=== PATIENT | female | born 1970 | race Caucasian/White ===

== ENCOUNTER 2023-03-03 12:31 | Emergency (ER) | payer OTHER, SELFPAY ==
--- NOTE | ~2023-03-03 | XR_ITS ---
EXAMINATION: XR ankle LT min 3V DATE: 03/03/2023 13:07 INDICATION: Left ankle injury and swelling. TECHNIQUE: 4 views of left ankle were obtained. COMPARISON: None. FINDINGS: Bone alignment is normal. No fracture. Joint spaces are normal. There are enthesophytes at the posterior and plantar aspects of calcaneal tuberosity. There is ankle soft tissue swelling. IMPRESSION: 1. No fracture. Reviewed, dictated and finalized at location A. IMPRESSION: 1. No fracture.
[2023-03-03 12:36] VITALS: BP 129/89; PULSE 71; RESP 16; O2SAT 100
--- NOTE | 2023-03-03 13:24 | ED.LOWEXIN ---
HPI - Extremity Injury (Lower) General Chief Complaint: Extremity Injury, Lower Stated Complaint: fall - ankle pain Time Seen by Provider: 03/03/23 12:35 History of Present Illness HPI Narrative: Patient is a 53-year-old female presenting with an ankle injury. Patient states that she has neuropathy and sometimes her legs fall asleep. She stood up from a sitting position and twisted her left ankle. States that she heard a crunching sound. Had immediate swelling and pain so she called EMS. Denies striking her head or losing consciousness. Denies further injuries or complaints. Review of Systems Review of Systems: All systems reviewed & are unremarkable except as noted in HPI and below Exam Narrative: GENERAL: Well-appearing, well-nourished, and in no acute distress. Pleasant and cooperative HEAD: Normocephalic, atraumatic. EYES: PERRLA and EOMI. ENT: Nares clear, no rhinorrhea or epistaxis. NECK: Supple. CHEST: No respiratory distress. HEART: Regular rate and rhythm. Normal peripheral pulses. ABDOMEN: Soft, nontender, nondistended, normal active bowel sounds. EXTREMITIES: left ankle with large lateral ecchymosis, swelling, diffuse tenderness; DP pulses 2+, no sensory deficits, ROM limited 2/2 pain SKIN: Warm, dry, no rash. NEURO: No focal deficits. Alert and oriented x3. PSYCH: Normal mood and affect. Course Vital Signs Vital signs: Vital Signs Pulse Rate 71 03/03/23 12:36 Respiratory Rate 16 03/03/23 12:36 Blood Pressure 129/89 03/03/23 12:36 Pulse Oximetry 100 03/03/23 12:36 Oxygen Delivery Room Air 03/03/23 12:36 Pulse Rate 71 03/03/23 12:36 Respiratory Rate 16 03/03/23 12:36 Blood Pressure 129/89 03/03/23 12:36 Pulse Oximetry 100 03/03/23 12:36 Oxygen Delivery Room Air 03/03/23 12:36 MDM - Extremity Injury (Lower) MDM Narrative Medical decision making narrative: Patient is a 53-year-old female presenting with a left ankle injury. Vitals are stable. Exam remarkable for the above. X-rays reveal no acute osseous abnormalities. Patient does have quite a bit of swelling and ecchymosis. We will wrap the ankle in an [place] wrap and provide crutches to keep weight off of the ankle for the next few days. Patient is unable to take ibuprofen, only Tylenol. We will provide short course of Vicodin for severe breakthrough pain. Discussed appropriate supportive care with DANYELL. Advised PCP and orthopedic follow-up. Appropriate return precautions given. Patient voiced understanding and is agreeable with plan. Discharged in stable condition. Differential Diagnosis Differential diagnosis: Likely ankle sprain and strain and ankle fracture Medical Records Attestation: I reviewed the patient's medical records. Imaging Data Radiologist's impression: ITS Impressions Ankle X-Ray 03/03/23 13:09 IMPRESSION: 1. No fracture. Critical Care Time Critical Care Time Critical Care Time: No Discharge Plan Discharge Clinical Impression: Ankle sprain and strain Patient Disposition: Home, Self-Care Condition: Stable Instructions: Antibiotic Form, Ankle Sprain (DC) Additional Instructions: The x-rays today show no broken bones. Please rest, apply ice, keep the area compressed, and elevate the ankle for the next few days. You may use Tylenol for pain control. You may use the [place] for severe breakthrough pain. We recommend following up with your PCP within 1-3 days. We also recommend following up with orthopedic surgery. If your symptoms worsen, you develop chest pain, shortness of breath, numbness or weakness, vomiting, fevers >100.4F, or other concerning symptoms arise, please return to the ER. Prescriptions: New hydrocodone-acetaminophen 5-325 mg tablet 1 tablet PO Q8H PRN (Reason: pain) Qty: 7 0RF Follow-up/Referrals: Tom Gutierrez MD [Physician] - HELDER,Livan HERNANDEZ [Non-Staff] - Stand Alone Forms: Work/School Release IP
[2023-03-03] MEDS: HYDROcodone/acetaminophen (*CRX) 5-325 MG TABLET 1 TAB PO (13:46)
== END 2023-03-03 14:30 | disposition home or self-care (01) ==
LOC: ANHED 13:46
PROVIDERS: Emergency Provider Emergency Medicine; PCP Hospitalist
DX: S96.912A Strain of unspecified muscle and tendon at ankle and foot level, left foot, initial encounter (principal); S93.402A Sprain of unspecified ligament of left ankle, initial encounter; G62.9 Polyneuropathy, unspecified; X50.9XXA Other and unspecified overexertion or strenuous movements or postures, initial encounter
CPT/HCPCS: 73610; 99283; A9270